=== PATIENT | male | born 1950 | race African-American/Black ===

== ENCOUNTER 2025-08-24 08:14 | Emergency (ER) | payer OTHER, SELFPAY ==
[2025-08-24 08:21] VITALS: BP 156/90
--- NOTE | 2025-08-24 09:00 | ED.GENMED ---
History of Present Illness
General
Chief Complaint: Swelling
Time Seen by Provider: 08/24/25 08:41
History of Present Illness
History of Present Illness:
75-year-old male presents to the emergency department for evaluation of severe facial swelling that has been persistent since being stung by bee on the forehead on Monday. Denies any pain or itching. Tried Benadryl yesterday without relief.
Unable to open the left eye due to swelling.
Review of Systems
Review of Systems
Allergies reviewed?: Yes
All Other Systems: ROS reviewed and negative except as documented in HPI and ROS
Phy Exam
Physical Exam
Physical Exam:
GEN: Well appearing, NAD, WDWN
HEENT: Oral mucosa moist, no scleral icterus, severe edema of the left periorbital soft tissues and moderate edema of the right periorbital soft tissues, no purulent discharge. I am able to manually open the eyelids and there is no evidence for
conjunctival injection or purulence. Extraocular motions are without limitation or pain
Cardiac: Regular rate
Lung: No respiratory distress, no tachypnea
MSK: No gross deformity or injuries
Skin: Good color, no pallor or jaundice, no rashes
Neuro: AO x3, moves all extremities freely
Psych: Calm, cooperative
Scores
Heart Failure Risk
Heart Failure Risk Score: Not Applicable
Course
Orders/Labs/Results
Orders:
Orders
08/24/25 09:00
Prednisone [Deltasone] 40 mg PO NOW STA
Vital Signs
Initial and Last Documented VS:
Initial Vital Signs
Temp Pulse Resp BP Pulse Ox
97.7 F 60 16 156/90 99
08/24/25 08:21 08/24/25 08:21 08/24/25 08:21 08/24/25 08:21 08/24/25 08:21
Last Documented Vital Signs
Temp Pulse Resp BP Pulse Ox
97.7 F 60 16 156/90 99
08/24/25 08:21 08/24/25 08:21 08/24/25 08:21 08/24/25 08:21 08/24/25 09:00
MDM/Problems Addressed
MDM/Problems Addressed:
Given the rapid onset of symptoms after the sting and lack of pain this is most likely a local/allergic reaction and will treat accordingly with steroids, no concern for infectious etiology. He has no compromise of his extraocular motion
*Pulse Oximetry
SaO2: 99
Oxygen Mode of Delivery: Room air
Patient hypoxic: no
*Critical Care Note
Total Time (30-74mins, 75-104mins- exclusive of procedures): Not Applicable
ED Attending Note
-
Portions of this chart may have been created with voice recognition software.� Occasional wrong word or��sound alike� substitutions may have occurred due to the inherent limitations of voice recognition software.
Discharge Plan
Departure
Patient Disposition: Home (Routine Discharge)
Date of Disposition: 08/24/25
Time of Disposition: 09:00
Patient with high blood pressure during this ER visit?: No
Discharge Problem:
Allergic reaction to insect sting
Instructions: Allergic reaction - ED (DC)
Prescriptions:
New
methylprednisolone [Medrol (Khanh)] 4 mg tablets,dose pack
See Rx Instructions .ROUTE .COMPLEX Qty: 21 0RF
Rx Instructions:
orally per package directions
No Action
cefdinir 300 mg capsule
300 mg PO BID 7 Days Qty: 14 0RF
Activity Restrictions/Additional Instructions:
Use [id number]-[id number] Benadryl or Zyrtec/Maricel as needed for additional swelling or itching
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
Interventions
Interventions:
*Risk Screen - Suicide Last Done: 08/24/25 08:21
*General Assessment Last Done: 08/24/25 09:18
*Neglect/Abuse Screening Last Done: 08/24/25 08:21
*ED- Fall Risk Assessment Last Done: 08/24/25 09:18
*ED COVID-19 Vaccine History Last Done: 08/24/25 09:18
*ED Influenza Vaccine History Last Done: 08/24/25 09:18
*Nursing Disposition Last Done: 08/24/25 09:18
ED-Skin Assessment Last Done: 08/24/25 09:17
Discharge Date and Time
Discharge Date/Time: 08/24/25 09:20
Print Language: SLOVAK
[2025-08-24] MEDS: DELTASONE 40 MG PO (09:10)
== END 2025-08-24 09:20 | disposition home or self-care (01) ==
LOC: EMR 08:14
PROVIDERS: EMERGENCY PHYSICIAN Emergency Medicine
DX: T63.441A Toxic effect of venom of bees, accidental (unintentional), initial encounter (principal); R22.0 Localized swelling, mass and lump, head
CPT/HCPCS: 99283